=== PATIENT | male | born 1990 | race Caucasian/White ===

== ENCOUNTER 2023-05-23 08:40 | Outpatient (CLI) | payer OTHER | END 2023-05-23 08:41 | disposition home or self-care (01) | LOC: MADRAD 08:40 | PROVIDERS: ATTEND Chiropractor | DX: M20.12 Hallux valgus (acquired), left foot (principal); M19.072 Primary osteoarthritis, left ankle and foot ==

== ENCOUNTER 2024-08-15 16:24 | Emergency (ER) | payer OTHER ==
[2024-08-15] MEDS ORDERED: Bacitracin 1 PK ONE (16:38)
[2024-08-15] MEDS ORDERED: Lidocaine 1% w/Epinephrine 1:100K 20 ML VIAL ONE (16:38)
[2024-08-15] MEDS ORDERED: Ibuprofen 600 MG TAB ONE (16:38)
== END 2024-08-15 17:15 | disposition home or self-care (01) ==
LOC: MADERS 16:24
DX: S81.811A Laceration without foreign body, right lower leg, initial encounter (principal); I10 Essential (primary) hypertension; W26.9XXA Contact with unspecified sharp object(s), initial encounter
CPT/HCPCS: 12002; 99282